=== PATIENT | female | born 1985 | race Two or more races ===

== ENCOUNTER 2021-01-29 19:33 | Emergency (ER) | payer OTHER ==
[~2021-01-29] VITALS: Ht 167.6 cm; Wt 90.7 kg
[2021-01-29 19:33] VITALS: BP 123/81
== END 2021-01-29 23:09 | disposition left against medical advice (07) ==
LOC: ER 19:36
DX: M54.5 Low back pain (principal); Z53.21 Procedure and treatment not carried out due to patient leaving prior to being seen by health care provider